=== PATIENT | female | born 1980 | race Caucasian/White ===

== ENCOUNTER 2017-07-07 08:06 | Inpatient (IN) | payer OTHER ==
[~2017-07-07] VITALS: Ht 177.8 cm; Wt 113.4 kg
[2017-07-07] VITALS (47 sets, daily range): BP systolic 100–133; BP diastolic 54–93; PULSE 75–105; RESP 16–20; TEMP 98.4–99.1
[~2017-07-07 08:06] MED LIST: PERC5TAB12 PO; PREN0.01 PO
[2017-07-07] MEDS: LACTATED RINGER'S 1000 ML INJ 1,000 ML IV SCH ×2 (09:00→22:18)
[2017-07-07] MEDS ORDERED: LACTATED RINGER'S 1000 ML INJ 1,000 ML IV PRN (09:14)
[2017-07-07] MEDS ORDERED: SODIUM CHLORID 0.9% 500 ML INJ 500 ML IV PRN (09:15)
[2017-07-07] MEDS ORDERED: MINERAL OIL 10 ML VIAL TOPICAL PRN (09:15)
[2017-07-07] MEDS ORDERED: CITRIC ACID-SODIUM CITRATE LIQ 30 ML UDC PO SCH (09:15)
[2017-07-07] MEDS ORDERED: LIDOCAINE HCL 1% 50 ML VIAL INFIL PRN (09:15)
[2017-07-07] MEDS ORDERED: OXYTOCIN 30 UNITS-500ML PREMIX 500 ML IV ONE (09:15)
[2017-07-07] MEDS ORDERED: LIDOCAINE HCL 1% 50 ML VIAL I-DERMAL PRN (09:15)
[2017-07-07] MEDS ORDERED: OXYTOCIN 30 UNITS-500ML PREMIX 500 ML IV SCH (09:30)
[2017-07-07] MEDS ORDERED: SODIUM CHLOR 0.9% 1000 ML INJ 1,000 ML IV PRN (09:34)
[2017-07-07 09:42] LABS: AUTOMATED NEUTROPHIL # 6.5 TH/MM3 (1.8-7.7); BASOPHIL % 0.3 % (0.0-2.0); EOSINOPHIL # 0.1 TH/MM3 (0-0.4); EOSINOPHIL % 0.9 % (0.0-4.0); HEMATOCRIT 30.5 % (35.0-46.0); HEMO FLAGS DIFF FINAL; LYMPH % 16.9 % (9.0-44.0); LYMPHOCYTE # 1.5 TH/MM3 (1.0-4.8); MEAN CELL VOLUME 82.2 FL (80.0-100.0); MEAN CORPUSCULAR HEMOGLOBIN 28.1 PG (27.0-34.0); MEAN CORPUSCULAR HGB CONC 34.2 % (32.0-36.0); MONO % 7.1 % (0.0-8.0); NEUT % 74.8 % (16.0-70.0); PLATELET COUNT 243 TH/MM3 (150-450); RED BLOOD COUNT 3.71 MIL/MM3 (4.00-5.30); WHITE BLOOD COUNT 8.7 TH/MM3 (4.0-11.0)
[2017-07-07 12:38] LABS: BLOOD, URINE NEG (NEG); COMMENT (UR) CULT NOT INDICATED; CULTURE IF INDICATED CULT NOT INDICATED; GLUCOSE,URINE NEG (NEG); KETONE, URINE NEG (NEG); MUCUS URINE FEW /lpf (OCC); NITRITE,URINE NEG (NEG); PH, URINE 7.5 (5.0-8.5); SQUAMOUS EPITHELIAL CELL URINE <1 /hpf (0-5); URINE COLOR LIGHT-YELLOW (YELLW/STRAW)
--- NOTE | 2017-07-07 18:16 | HHI.HP ---
HPI Chief Complaint induction at 39 weeks Date Seen: Jul 07, 2017 Time Seen: 12:00 Travel History International Travel<30 Days: No Contact w/Intl Traveler<30Days: No Known Affected Area: No History of Present Illness HPI 37 yo here for induction at 39 weeks with favorable cervix 2 cm with previous vaginal Para: 1 : 3 History Past Medical History Medical History: Denies Significant Hx Obstetric History Obstetric History x1 Past Surgical History Surgical History: No Previous Surgery Family History Family History: Negative Social History Alcohol Use: No Tobacco Use: No Substance Abuse: No Allergies-Medications (Allergen,Severity, Reaction): Coded Allergies: No Known Allergies (Unverified , 07/07/17) Home Meds Reported Medications Oxycodone-Acetaminophen 5-325 mg (Percocet 5-325 mg)5 Mg/325 Mg Tab1-2 Tab PO Q4HPRN #20 04/13/12 Multivit/Min/Fol Ac/Iron/Pren ( Vit ( Plus)) Tab1 Tab PO DAILY 04/11/12 Review of Systems Except as stated in HPI: all other systems reviewed are Neg Physical Exam Vital Signs Date Time Temp Pulse Resp B/P Pulse Ox O2 Delivery O2 Flow Rate FiO2 07/07/17 16:54 17 07/07/17 16:51 83 127/83 07/07/17 15:39 81 110/74 07/07/17 15:30 98.8 18 07/07/17 14:00 18 07/07/17 13:15 99.1 07/07/17 13:08 17 07/07/17 13:07 86 126/75 07/07/17 12:45 18 07/07/17 12:15 17 07/07/17 12:09 83 108/62 07/07/17 12:01 87 131/79 07/07/17 11:31 82 133/89 07/07/17 11:15 18 07/07/17 11:00 82 104/59 07/07/17 10:45 17 07/07/17 10:38 81 120/73 07/07/17 10:30 18 07/07/17 09:43 81 18 131/76 07/07/17 09:30 18 Narrative GENERAL: Well-nourished, well-developed patient. SKIN: Warm and dry. HEAD: Normocephalic and atraumatic. EYES: No scleral icterus. No injection or drainage. ENT: No nasal drainage noted. Mucous membranes pink. Airway patent. NECK: Supple, trachea midline. No JVD. CARDIOVASCULAR: Regular rate and rhythm without murmurs, gallops, or rubs. RESPIRATORY: Breath sounds equal bilaterally. No accessory muscle use. BREASTS: Bilateral exam showed no masses , no retractions, no nipple discharge. ABDOMEN/GI: Abdomen soft, non-tender, bowel sounds present, no rebound, no guarding Gravid to 40 weeks size Fundal Height: [-] GENITOURINARY: External Genitalia: intact and normal in appearance BUS glands: [-] Cervix: [-] Dilatation: 2 Effacement: 80 Station: -2 Presentation: vtx Membranes: AROM Uterine Contractions: [-] FHT's: Category: 1 Baseline: [-] Reactive: [-] Variability: [-] Decels: [-] EXTREMITIES: No cyanosis or edema. BACK: Nontender without obvious deformity. No CVA tenderness. NEUROLOGICAL: Awake and alert. Motor and sensory grossly within normal limits. Five out of 5 muscle strength in all muscle groups. Normal speech. Data Data Vital Signs Reviewed: Yes Orders Admit To Inpatient (07/07/17 ) Code Status (07/07/17 09:14) Vital Signs (Adult) .Per protocol (07/07/17 09:14) Activity Oob Ad Rizwana (07/07/17 09:14) Heart (07/07/17 09:14) Amnioinfusion (07/07/17 09:14) Urinary Catheter Management .ONCE (07/07/17 09:14) Diet Liquid (07/07/17 Breakfast) Lactated Ringer's 1000 Ml Inj (Lr 1000 M (07/07/17 09:14) Lactated Ringer's 1000 Ml Inj (Lr 1000 M (07/07/17 09:14) Sodium Chlorid 0.9% 500 Ml Inj (Ns 500 M (07/07/17 09:15) Sodium Chlor 0.9% 1000 Ml Inj (Ns 1000 M (07/07/17 09:34) Lidocaine 1% Inj (50 Ml) (Xylocaine 1% I (07/07/17 09:15) Citric Acid-Sodium Citrate Liq (Bicitra (07/07/17 09:15) Fentanyl Inj (Fentanyl Inj) (07/07/17 09:15) Fentanyl Inj (Fentanyl Inj) (07/07/17 09:15) Complete Blood Count With Diff (07/07/17 09:14) Hold Clot (07/07/17 09:14) Abo/Rh Blood Type (07/07/17 09:14) Urinalysis - C+S If Indicated (07/07/17 09:14) Resp Oxygen Non Rebreathe Mask (07/07/17 ) ^ Epidural / Intrathecal Infus (07/07/17 09:14) Oxytocin 30 Units-500ml Premix (Pitocin (07/07/17 09:15) Lidocaine 1% Inj (50 Ml) (Xylocaine 1% I (07/07/17 09:15) Light Mineral Oil (Muri-Lube Oil) (07/07/17 09:15) Inpatient Certification (07/07/17 ) Specimen To Be Collected PRN (07/07/17 09:14) ^ Non Stress Test (07/07/17 09:16) Response To Medication .Post New Med Administration, Reaction (07/07/17 09:16) ^ Discontinue Medication (07/07/17 09:16) Oxytocin 30 Units-500ml Premix (Pitocin (07/07/17 09:30) Labs Laboratory Tests Test 07/07/17 07/07/17 08:40 10:35 White Blood Count 8.7 Red Blood Count 3.71 Hemoglobin 10.4 Hematocrit 30.5 Mean Corpuscular Volume 82.2 Mean Corpuscular Hemoglobin 28.1 Mean Corpuscular Hemoglobin 34.2 Concent Red Cell Distribution Width 15.0 Platelet Count 243 Mean Platelet Volume 8.1 Neutrophils (%) (Auto) 74.8 Lymphocytes (%) (Auto) 16.9 Monocytes (%) (Auto) 7.1 Eosinophils (%) (Auto) 0.9 Basophils (%) (Auto) 0.3 Neutrophils # (Auto) 6.5 Lymphocytes # (Auto) 1.5 Monocytes # (Auto) 0.6 Eosinophils # (Auto) 0.1 Basophils # (Auto) 0.0 CBC Comment DIFF FINAL Differential Comment Blood Type A NEGATIVE Band and Hold Urine Color LIGHT-YELLOW Urine Turbidity CLEAR Urine pH 7.5 Urine Specific [place] 1.003 Urine Protein NEG Urine Glucose (UA) NEG Urine Ketones NEG Urine Occult Blood NEG Urine Nitrite NEG Urine Bilirubin NEG Urine Urobilinogen LESS THAN 2.0 Urine Leukocyte Esterase NEG Urine Squamous Epithelial <1 Cells Urine Mucus FEW Microscopic Urinalysis Comment CULT NOT INDICATED Assessment/Plan Problem List: (1) 39 weeks gestation of Discharge Planning induction Henrique Adames MD Jul 07, 2017 18:15
[2017-07-07] MEDS ORDERED: fentaNYL 2MCG-BUPIV 0.125% INJ 100 ML ONE (21:41)
[2017-07-07] MEDS ORDERED: ePHEDrine/NS 25 MG/5 ML SYR IV PRN (22:30)
[2017-07-07] MEDS ORDERED: DO NOT ADMINISTER ANTICOAGULANTS PRN (22:30)
[2017-07-07] MEDS ORDERED: NO SYSTEM NARCOTICS PRN (22:30)
[2017-07-07] MEDS ORDERED: fentaNYL 2MCG-BUPIV 0.125% 100 ML EPIDURAL SCH (22:30)
[2017-07-08] VITALS (22 sets, daily range): BP systolic 88–123; BP diastolic 46–94; PULSE 73–103; RESP 15–20; TEMP 98–98.7
--- NOTE | 2017-07-08 01:48 | PD.OB.DELI ---
Delivery Date: Jul 08, 2017 Anesthesia: Epidural Episiotomy: Left mediolateral Vaginal Delivery: Normal, Spontaneous Presentation: Occiput anterior Nuchal Cord: None Delayed cord clamping (45 sec): Yes : Female One Minute : 9 Five Minute : 9 Weight: 8# 13 oz Placenta: Spontaneous delivery, Intact, 3 vessel cord Laceration: Vaginal laceration, 1 deg Repair: Chromic interrupted Henrique Adames MD Jul 08, 2017 01:48
[2017-07-08] MEDS ORDERED: ALUMINUM/MAGNESIUM/SIMETH 30 ML CUP PO PRN (02:00)
[2017-07-08] MEDS ORDERED: OXYTOCIN 30 UNITS-500ML PREMIX 500 ML IV SCH (02:00)
[2017-07-08] MEDS ORDERED: ZOLPIDEM TARTRATE 5 MG TAB PO PRN (02:00)
[2017-07-08] MEDS ORDERED: ONDANSETRON ODT 4 MG TAB PO PRN (02:00)
[2017-07-08] MEDS ORDERED: BENZOCAINE 20% TOPICAL SPRAY 60 ML CAN TOPICAL PRN (02:00)
[2017-07-08] MEDS ORDERED: oxyCODONE/ACETAMINOPHEN 5 MG/325 MG TAB PO PRN ×2 (02:00)
[2017-07-08] MEDS ORDERED: SODIUM CHLORIDE 0.9% FLUSH 10 ML FLUSH IV FLUSH PRN (02:00)
[2017-07-08] MEDS ORDERED: ACETAMINOPHEN 325 MG TAB PO PRN (02:00)
[2017-07-08] MEDS ORDERED: WITCH HAZEL 50%/GLYCERIN 12.5% 40 PAD JAR TOPICAL PRN (02:00)
[2017-07-08] MEDS: DOCUSATE SODIUM 50 MG/SENNA 8.6 MG TAB PO PRN ×2 (05:06→23:22)
[2017-07-08] MEDS: IBUPROFEN 600 MG TAB PO PRN ×3 (08:13→23:23)
[2017-07-08] MEDS ORDERED: SODIUM CHLORIDE 0.9% FLUSH 10 ML FLUSH IV FLUSH SCH (09:00)
--- NOTE | 2017-07-08 12:52 | HHI.OB ---
Subjective Post Day: 0 Remarks doing well 12 hours pp Objective Vitals/I&O Vital Signs Date Time Temp Pulse Resp B/P Pulse Ox O2 Delivery O2 Flow Rate FiO2 07/08/17 08:22 84 18 119/66 07/08/17 08:22 98.7 07/08/17 04:41 98.4 07/08/17 04:41 83 18 108/64 07/08/17 04:30 20 07/08/17 02:30 112/94 07/08/17 02:19 18 07/08/17 02:16 86 123/75 07/08/17 02:06 18 07/08/17 02:01 18 07/08/17 02:00 97 110/88 07/08/17 01:50 20 07/08/17 01:50 98.7 07/08/17 01:46 102 99/47 07/08/17 01:35 20 07/08/17 01:30 115/82 07/08/17 01:30 102 07/08/17 01:02 18 07/08/17 01:01 103 97/73 07/08/17 00:42 113/91 07/08/17 00:42 85 07/08/17 00:40 18 07/08/17 00:31 88/46 07/08/17 00:08 18 07/08/17 00:01 73 104/56 07/08/17 00:00 98.1 07/07/17 23:52 16 07/07/17 23:45 75 16 113/63 07/07/17 23:30 84 106/63 07/07/17 23:20 16 07/07/17 23:15 88 101/55 07/07/17 23:02 16 07/07/17 23:00 83 18 100/54 07/07/17 22:46 86 109/59 07/07/17 22:41 18 07/07/17 22:30 20 07/07/17 22:30 126/93 07/07/17 22:30 83 07/07/17 22:24 114/59 07/07/17 22:24 87 07/07/17 22:22 86 116/56 07/07/17 22:19 81 123/56 07/07/17 22:18 18 07/07/17 22:15 18 07/07/17 22:15 129/54 07/07/17 22:12 85 113/59 07/07/17 22:09 118/69 07/07/17 22:06 111/85 07/07/17 22:05 105 07/07/17 22:03 125/69 07/07/17 22:00 95 07/07/17 21:17 18 07/07/17 21:16 76 123/72 07/07/17 20:45 98.4 07/07/17 20:45 18 07/07/17 20:00 20 07/07/17 19:16 18 07/07/17 19:15 84 126/72 07/07/17 18:00 98.9 18 07/07/17 16:54 17 07/07/17 16:51 83 127/83 07/07/17 15:39 81 110/74 07/07/17 15:30 98.8 18 07/07/17 14:00 18 07/07/17 13:15 99.1 07/07/17 13:08 17 07/07/17 13:07 86 126/75 Objective Remarks GENERAL: Well-nourished, well-developed patient. ABDOMEN/GI: Abdomen soft, non-tender. Fundus: Firm, non-tender at umbilicus. GENITOURINARY: Light to moderate bleeding. EXTREMITIES: No cyanosis or edema, non-tender, without signs of DVT. Medications and IVs Current Medications Medications (Trade) Dose Ordered Sig/Rohit Route Start Time Stop Time Status Last Admin Miscellaneous Information No systemic narcotics to be given except... UNSCH PRN .XX 07/07/17 22:30 07/08/17 22:29 Miscellaneous Information DO NOT ADMINISTER ANY ANTICOAGUL... UNSCH PRN .XX 07/07/17 22:30 07/08/17 22:29 (NS Flush) 2 ml BID IV FLUSH 07/08/17 09:00 (NS Flush) 2 ml UNSCH PRN IV FLUSH 07/08/17 02:00 (Tylenol) 650 mg Q4H PRN PO 07/08/17 02:00 (Motrin) 600 mg Q6H PRN PO 07/08/17 02:00 07/08/17 08:13 (Percocet 5-325 Mg) 1 tab Q4H PRN PO 07/08/17 02:00 (Percocet 5-325 Mg) 2 tab Q4H PRN PO 07/08/17 02:00 (Americaine 20% Top Spr) 1 spray Q4H PRN TOPICAL 07/08/17 02:00 07/08/17 05:05 (Tucks Pads) 1 applic QID PRN TOPICAL 07/08/17 02:00 07/08/17 05:05 (Doreen-Colace) 2 tab Q12H PRN PO 07/08/17 02:00 07/08/17 05:06 (Ambien) 5 mg HS PRN PO 07/08/17 02:00 (M-M-R Ii Inj) 0.5 ml ONCE ONCE SQ 07/08/17 16:00 07/08/17 16:01 (Boostrix Inj) 0.5 ml ONCE ONCE IM 07/08/17 16:00 07/08/17 16:01 (Mag-Al Plus Susp Liq) 15 ml Q8H PRN PO 07/08/17 02:00 (Zofran Odt) 4 mg Q6H PRN PO 07/08/17 02:00 Assessment/Plan Problem List: (1) 39 weeks gestation of (2) Spontaneous vaginal delivery Henrique Adames MD Jul 08, 2017 12:52
[2017-07-08] MEDS ORDERED: OXYC1TAB63 PO (12:54)
--- NOTE | 2017-07-08 12:54 | HHI.DCPOC ---
Discharge Care Plan Diagnosis: (1) Spontaneous vaginal delivery Report Symptoms to Your Doctor -Temperature above 100.5 degrees -Redness, of incision or excessive or foul smelling drainage -Unusual pain or calf pain -Increased vaginal bleeding -Painful or difficulty urinating -Feelings of extreme sadness or anxiety after 2 weeks Goals to Promote Your Health * To prevent worsening of your condition and complications * To maintain your health at the optimal level Directions to Meet Your Goals Take your medications as prescribed Follow your dietary instruction Follow activity as directed Ensure plenty of rest for recovery Drink fluids for hydration Keep your appointments as scheduled Take your immunizations and boosters as scheduled If your symptoms worsen call your PCP, if no PCP go to Urgent Care Center or Emergency Room Smoking is Dangerous to Your Health. Avoid second hand smoke Call the 24-hour crisis hotline for domestic abuse at Henrique Adames MD Jul 08, 2017 12:54
--- NOTE | 2017-07-08 12:55 | HHI.DS ---
Admission Date Jul 07, 2017 at 08:06 Discharge Date: Jul 08, 2017 Admitting Diagnosis Diagnosis: (1) Spontaneous vaginal delivery Diagnosis: Principal Delivery Date: Jul 08, 2017 Vaginal Delivery: Normal, Spontaneous Infant: Female Brief History 37 yo here for induction at 39 weeks with favorable cervix 2 cm with previous vaginal Hospital Course doing well Pt Condition on Discharge: Good Discharge Disposition: Discharge Home Discharge Instructions Diet Instructions: As Tolerated, No Restrictions Activities You Can Perform: Pelvic Rest Activities to Avoid: Driving for 24 hrs Follow up Referrals: DAY CARE HOME PROVIDER - 2 Weeks @ [facility] with Henrique Adames MD New Medications: Oxycodone-Acetaminophen (Oxycodone-Acetaminophen) 5-325 mg Tab 1 TAB PO Q4H PRN PAIN SCALE 3 TO 5 #20 TAB Continued Medications: Multivit/Min/Fol Ac/Iron/Pren ( Vit ( Plus)) Tab 1 TAB PO DAILY Discontinued Medications: Oxycodone-Acetaminophen 5-325 mg (Percocet 5-325 mg) 5 Mg/325 Mg Tab 1 - 2 TAB PO Q4HPRN #20 Henrique Adames MD Jul 08, 2017 12:55
[2017-07-08] MEDS ORDERED: MEASLES, MUMPS, RUBELLA VACCINE 0.5 ML VIAL SQ ONE (16:00)
[2017-07-08] MEDS ORDERED: DIPHTH/TETANUS/ACEL PERTUSSIS (BOOSTER) 0.5 ML VIAL/PFS IM ONE (16:00)
[2017-07-09] VITALS: BP 110/63; PULSE 78; RESP 18; TEMP 98.2
[2017-07-09 03:30] VITALS: BP 110/70; PULSE 80; RESP 16; TEMP 97.5
[2017-07-09] MEDS: IBUPROFEN 600 MG TAB PO PRN ×2 (06:29→13:26)
[2017-07-09 07:40] VITALS: BP 112/70; PULSE 70; RESP 16; TEMP 98.1
== END 2017-07-09 16:15 | disposition home or self-care (01) | DRG 775 ==
LOC: H2EA 08:06 → H1EA 07-08 04:23
PROVIDERS: ADMIT Obstetrics & Gynecology; ATTEND Obstetrics & Gynecology
PROC: 10E0XZZ Delivery of Products of Conception, External Approach (ICD-10-PCS; principal; 2017-07-08)
PROC: 0UQGXZZ Repair Vagina, External Approach (ICD-10-PCS; 2017-07-08)
PROC: 0W8NXZZ Division of Female Perineum, External Approach (ICD-10-PCS; 2017-07-08)
DX: O71.4 Obstetric high vaginal laceration alone (principal); Z37.0 Single live birth; Z3A.39 39 weeks gestation of pregnancy
CPT/HCPCS: 81001; 85025; 85461; 86850; 86900; 86901; 90384; 90715; J2590; J2790; J7120